=== PATIENT | male | born 1950 | race Caucasian/White ===

== ENCOUNTER → 2016-06-19 | Outpatient (CLI) | payer MEDICARE | LOC: CT 13:23 | DX: C61 Malignant neoplasm of prostate (principal); C79.52 Secondary malignant neoplasm of bone marrow; C79.51 Secondary malignant neoplasm of bone | CPT/HCPCS: 71260; J7050; Q9962 ==

== ENCOUNTER → 2016-06-26 | Outpatient (CLI) | payer MEDICARE | LOC: NM 06-23 08:00 | DX: C61 Malignant neoplasm of prostate (principal); C79.52 Secondary malignant neoplasm of bone marrow; M89.8X8 Other specified disorders of bone, other site | CPT/HCPCS: 78306; A9503 ==